=== PATIENT | male | born 2000 | race American Indian/Alaskan Native ===

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

== ENCOUNTER 2021-10-13 02:27 | Emergency (ER) | payer OTHER ==
[~2021-10-13] VITALS: Ht 172.7 cm; Wt 122.8 kg
[2021-10-14] MEDS ORDERED: ONDANSETRON ODT8 MG PO (01:34)
== END 2021-10-13 02:57 | disposition home or self-care (01) ==
LOC: ED 02:27
DX: B34.9 Viral infection, unspecified (principal); I10 Essential (primary) hypertension; Z20.822 Contact with and (suspected) exposure to COVID-19
CPT/HCPCS: 99284; A9270; C9803; U0003

== ENCOUNTER 2021-10-14 00:18 | Emergency (ER) | payer OTHER ==
[~2021-10-14] VITALS: Ht 172.7 cm; Wt 122.5 kg
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
[2021-10-14] MEDS ORDERED: ONDANSETRON ODT8 MG PO (01:34)
== END 2021-10-14 01:36 | disposition home or self-care (01) ==
LOC: ED 00:18
DX: B34.9 Viral infection, unspecified (principal)
CPT/HCPCS: 99283

== ENCOUNTER 2021-10-17 17:25 | Emergency (ER) | payer OTHER ==
[~2021-10-17] VITALS: Ht 172.7 cm; Wt 122.3 kg
[~2021-10-17 17:25] MED LIST changes: +ONDANSETRON ODT8 MG PO
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
[2021-10-17] MEDS ORDERED: ULTRAM50 MG PO (21:23)
== END 2021-10-17 21:41 | disposition home or self-care (01) ==
LOC: ED 17:25
DX: R74.01 Elevation of levels of liver transaminase levels (principal); Z88.2 Allergy status to sulfonamides
CPT/HCPCS: 36415; 71045; 74177; 80053; 81001; 83690; 85025; 99285-25; Q9967

== ENCOUNTER 2022-09-19 10:19 | Emergency (ER) | payer OTHER ==
[~2022-09-19] VITALS: Ht 172.7 cm; Wt 129.6 kg
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
== END 2022-09-19 11:42 | disposition home or self-care (01) ==
LOC: ED 10:19
DX: S01.01XA Laceration without foreign body of scalp, initial encounter (principal); W22.8XXA Striking against or struck by other objects, initial encounter; Z88.2 Allergy status to sulfonamides
CPT/HCPCS: 12001; 99283-25